=== PATIENT | female | born 1985 | race Caucasian/White ===

== ENCOUNTER → 2017-01-12 | Outpatient (CLI) | payer BC ==
[~2017-01-12] MED LIST: PRENTAB26 PO; RANI150T3 PO
[2017-01-12 13:00] LABS: BASO % 0.7 %; BASO ABS # 0.03 K/uL (0-0.2); COMPLETE YES; HEMATOCRIT 38.3 % (37-47); IG% 0.2 %; LYMPH % 20.7 %; LYMPH ABS # 0.92 K/uL (1.2-3.4); MEAN CELL VOLUME 82.2 fL (80-100); MEAN CORPUSCULAR HGB CONC 32.9 g/dl (32-36); MEAN PLATELET VOLUME 10.1 fL (7.4-10.4); MONO % 8.6 %; NEUT % 67.8 %; PLATELET COUNT 256 K/uL (130-400); RED BLOOD COUNT 4.66 M/uL (4.2-5.4); WHITE BLOOD COUNT 4.44 K/uL (4.8-10.8)
[2017-01-12 13:17] LABS: ALT/SGPT 25 U/L (12-78); AST/SGOT 15 U/L (15-37); BLOOD UREA NITROGEN 9 mg/dl (7-18); CALCIUM 8.9 mg/dl (8.5-10.1); CARBON DIOXIDE 31 mmol/L (21-32); CHLORIDE 106 mmol/L (98-107); CREATININE 0.75 mg/dl (0.60-1.20); GLUCOSE 72 mg/dl (70-99); POTASSIUM 3.6 mmol/L (3.5-5.1); SODIUM 139 mmol/L (136-145)
[2017-01-12 13:19] LABS: ALB/GLOB RATIO 1.1 (0.9-2); ALKALINE PHOSPHATASE 43 U/L (45-117)
== END | disposition home or self-care (01) ==
LOC: C.LABBC 10:10
PROVIDERS: ATTEND Internal Medicine
DX: R11.2 Nausea with vomiting, unspecified (principal); R10.33 Periumbilical pain

== ENCOUNTER → 2017-01-17 | Outpatient (CLI) | payer BC ==
--- NOTE | 2017-01-17 08:25 | DIAGNOSTIC IMAGING REPORT ---
ABDOMINAL ULTRASOUND COMPLETE HISTORY: Nausea. Vomiting. R11.2 Nausea and yolrmquuP34.33 Periumbilical abdominal pain of. COMPARISON: 03/22/2010 FINDINGS: Pancreas: Possible hypoechoic nodule in the pancreatic tail versus interposed bowel measuring 1.5 cm Liver: Small 1 cm benign hemangioma. Otherwise negative study Gallbladder: No gallbladder wall thickening. No gallstones. CBD: 3 mm Kidneys: No hydronephrosis. Spleen: Normal in size. Aorta: Normal in caliber. IVC: Patent. IMPRESSION: 1. 1.5 cm hypoechoic nodule pancreatic tail versus interposed bowel/artifact. 2. CT of the abdomen is recommended to exclude is pancreas lesion. 3. Small benign hemangioma liver 4. Otherwise negative study Electronically signed by: Jesus Alberto Thornton M.D. 01/17/2017 8:24 AM Dictated Date/Time: 01/17/2017 8:21 AM
== END | disposition home or self-care (01) ==
LOC: C.ULTRBC 07:20
PROVIDERS: ATTEND Internal Medicine
DX: R11.2 Nausea with vomiting, unspecified (principal); R10.33 Periumbilical pain

== ENCOUNTER → 2017-01-31 | Outpatient (CLI) | payer BC ==
[~2017-01-31] MED LIST changes: +OPTIRAY 320 IV PRN
--- NOTE | 2017-01-31 10:09 | DIAGNOSTIC IMAGING REPORT ---
PANCREAS (ABDOMEN) COMBO CLINICAL HISTORY: 31 years-old Female presenting with abnormal ultrasound, 1.5 cm pancreatic tail nodule. TECHNIQUE: Multidetector CT of the abdomen was performed before and after the administration of intravenous contrast. IV contrast: 94 mL of Optiray 320. A dose lowering technique was used consistent with the principles of ALARA (as low as reasonably achievable). COMPARISON: Correlation made to ultrasound from 01/17/2017. CT DOSE (mGy.cm): The estimated cumulative dose is 375.33 mGycm. FINDINGS: Film Coater topogram: Unremarkable. Lung bases: Lung bases clear. No pericardial or pleural effusion. Liver: Normal morphology. Subcentimeter flash filling hemangioma noted in the left hepatic lobe. Focal hypodensity along the fissure for the ligamentum teres likely perfusional variation. Replaced right hepatic artery arising from the superior mesenteric artery. Superior mesenteric, portal, and hepatic veins patent. Biliary: No intrahepatic or extrahepatic biliary ductal dilatation. Normal gallbladder. Pancreas: Normal. No mass lesion. Specifically, the pancreatic tail is normal. Spleen: Well-defined hypodense lesion at the medial superior spleen measuring 1.8 cm with an additional similar-appearing subcentimeter lesion more inferiorly and laterally. Possibly cysts or pseudocysts versus lymphangiomas. Adrenal glands: Normal. Kidneys and ureters: Normal. No hydronephrosis. Gastrointestinal tract: Evaluation of the bowel is limited due to lack of progression of oral contrast beyond the stomach. No bowel obstruction. Bowel grossly normal. Peritoneal cavity: No free fluid or intraperitoneal gas. Vasculature: Aorta and IVC patent and normal in caliber. Lymph nodes: No enlarged lymph nodes in the abdomen. Abdominal wall: Normal. Musculoskeletal: Normal. IMPRESSION: 1. No evidence of pancreatic tail mass. No acute intraperitoneal pathology. Electronically signed by: Jeevan Avalos M.D. 01/31/2017 10:07 AM Dictated Date/Time: 01/31/2017 10:00 AM
== END | disposition home or self-care (01) ==
LOC: C.CTS 09:33
PROVIDERS: ATTEND Internal Medicine
DX: K86.9 Disease of pancreas, unspecified (principal)

== ENCOUNTER → 2017-06-28 | Outpatient (CLI) | payer BC ==
[~2017-06-28] MED LIST changes: -OPTIRAY 320 IV PRN
== END | disposition home or self-care (01) ==
LOC: C.PAPS 15:29
PROVIDERS: ATTEND Physician Assistant
DX: Z01.419 Encounter for gynecological examination (general) (routine) without abnormal findings (principal)

== ENCOUNTER → 2017-07-31 | Outpatient (CLI) | payer OTHER ==
[2017-07-31 16:50] LABS: BASO % 0.5 %; BASO ABS # 0.03 K/uL (0-0.2); EOS % 1.8 %; EOS ABS # 0.11 K/uL (0-0.5); HEMATOCRIT 37.8 % (37-47); HEMOGLOBIN 12.6 g/dL (12.0-16.0); IG# 0.02 K/uL (0.00-0.02); LYMPH % 21.4 %; LYMPH ABS # 1.28 K/uL (1.2-3.4); MEAN CELL VOLUME 81.6 fL (80-100); MEAN CORPUSCULAR HEMOGLOBIN 27.2 pg (25-34); MEAN CORPUSCULAR HGB CONC 33.3 g/dl (32-36); MEAN PLATELET VOLUME 9.5 fL (7.4-10.4); MONO % 3.2 %; MONO ABS # 0.19 K/uL (0.11-0.59); NEUT % 72.8 %; NEUT ABS # 4.35 K/uL (1.4-6.5); PLATELET COUNT 264 K/uL (130-400); RED CELL DISTRIBUTION WIDTH CV 13.5 % (11.5-14.5); RED CELL DISTRIBUTION WIDTH SD 40.3 fL (36.4-46.3); WHITE BLOOD COUNT 5.98 K/uL (4.8-10.8)
[2017-07-31 17:10] LABS: ALBUMIN 3.5 gm/dl (3.4-5.0); ALT/SGPT 23 U/L (12-78); AST/SGOT 13 U/L (15-37); BLOOD UREA NITROGEN 12 mg/dl (7-18); CALCIUM 9.3 mg/dl (8.5-10.1); CARBON DIOXIDE 28 mmol/L (21-32); CREATININE 0.82 mg/dl (0.60-1.20); GLUCOSE 93 mg/dl (70-99); POTASSIUM 3.4 mmol/L (3.5-5.1); SODIUM 138 mmol/L (136-145)
[2017-07-31 17:13] LABS: ALKALINE PHOSPHATASE 34 U/L (45-117)
== END | disposition home or self-care (01) ==
LOC: C.LAB 16:07
PROVIDERS: ATTEND Nurse Practitioner Family
DX: K21.9 Gastro-esophageal reflux disease without esophagitis (principal); D73.9 Disease of spleen, unspecified

== ENCOUNTER → 2017-08-02 | Outpatient (CLI) | payer OTHER ==
[~2017-08-02] MED LIST changes: +OPTIRAY 320 IV PRN
--- NOTE | 2017-08-02 13:14 | DIAGNOSTIC IMAGING REPORT ---
CT OF THE ABDOMEN AND PELVIS WITH CONTRAST CLINICAL HISTORY: Splenic lesion. COMPARISON STUDY: CT of the abdomen and pelvis January 31, 2017. TECHNIQUE: Following IV administration of 93 mL of Optiray-320, axial images of the abdomen and pelvis were obtained from the lung bases to the proximal femurs. Images were reviewed in the axial, sagittal, and coronal planes. IV contrast was administered without complication. A dose lowering technique was utilized adhering to the principles of ALARA. Oral contrast was administered. CT DOSE: 254.99 mGy.cm FINDINGS: The previously described 1.8 cm cystic lesion has markedly decreased in size and may have completely resolved. However, there is a suspected residual 6 mm hypodensity. This suggests a cyst. This is benign. An 8 mm hypodense splenic lesion is unchanged. Liver morphology is normal. A 1.5 cm right hepatic lobe hemangioma is noted. These kidneys, adrenal glands and pancreas are normal. The caliber and wall thickness of small and large bowel are normal. No lymphadenopathy is present. No suspicious osseous lesions are present. There is no biliary or pancreatic ductal dilatation. The appendix is normal. IMPRESSION: 1. Marked decrease in size of the previously described 1.8 cm hypodense splenic lesion which likely reflected a cyst. This is benign. No change in an additional 8 mm hypodense splenic lesion which is benign. 2. 1.5 cm right hepatic lobe hemangioma. Electronically signed by: Daniel Pineda M.D. 08/02/2017 1:12 PM Dictated Date/Time: 08/02/2017 1:03 PM
== END | disposition home or self-care (01) ==
LOC: C.CTS 12:12
PROVIDERS: ATTEND Nurse Practitioner Family
DX: D73.9 Disease of spleen, unspecified (principal)

== ENCOUNTER → 2018-02-17 | Outpatient (CLI) | payer OTHER ==
[~2018-02-17] MED LIST changes: -OPTIRAY 320 IV PRN
[2018-02-17 15:45] LABS: BASO % 0.4 %; BASO ABS # 0.02 K/uL (0-0.2); HEMATOCRIT 40.4 % (37-47); HEMOGLOBIN 13.1 g/dL (12.0-16.0); IG# 0.01 K/uL (0.00-0.02); LYMPH % 29.6 %; MEAN CELL VOLUME 80.5 fL (80-100); MEAN CORPUSCULAR HEMOGLOBIN 26.1 pg (25-34); MEAN CORPUSCULAR HGB CONC 32.4 g/dl (32-36); MEAN PLATELET VOLUME 9.5 fL (7.4-10.4); MONO % 4.2 %; MONO ABS # 0.21 K/uL (0.11-0.59); NEUT % 63.6 %; NEUT ABS # 3.22 K/uL (1.4-6.5); PLATELET COUNT 281 K/uL (130-400); RED CELL DISTRIBUTION WIDTH CV 13.6 % (11.5-14.5); RED CELL DISTRIBUTION WIDTH SD 39.6 fL (36.4-46.3); WHITE BLOOD COUNT 5.06 K/uL (4.8-10.8)
[2018-02-17 16:22] LABS: ALBUMIN 3.7 gm/dl (3.4-5.0); ALKALINE PHOSPHATASE 53 U/L (45-117); ALT/SGPT 24 U/L (12-78); AST/SGOT 14 U/L (15-37); BLOOD UREA NITROGEN 11 mg/dl (7-18); CALCIUM 8.9 mg/dl (8.5-10.1); CARBON DIOXIDE 28 mmol/L (21-32); CREATININE 0.85 mg/dl (0.60-1.20); GLUCOSE 70 mg/dl (70-99); POTASSIUM 3.7 mmol/L (3.5-5.1); SODIUM 137 mmol/L (136-145); TOTAL PROTEIN 7.3 gm/dl (6.4-8.2)
== END | disposition home or self-care (01) ==
LOC: C.LAB 15:11
PROVIDERS: ATTEND Nurse Practitioner Family
DX: D73.9 Disease of spleen, unspecified (principal); R53.83 Other fatigue

== ENCOUNTER → 2018-02-21 | Outpatient (CLI) | payer OTHER ==
--- NOTE | 2018-02-21 08:58 | DIAGNOSTIC IMAGING REPORT ---
(SPLEEN) ABD LTD CLINICAL HISTORY: 32 years-old Female presenting with D73.9 Splenic lesion [id number]. TECHNIQUE: Real-time grayscale and limited color Doppler ultrasound imaging of the left upper quadrant of the abdomen was performed. COMPARISON: CT from 08/02/2017 FINDINGS: Spleen: Normal in echogenicity and size, measuring 8.8 cm in length. An anechoic subcentimeter lesion is noted in the spleen as seen on CT. Left kidney: Grossly no hydronephrosis. Ascites: None. Other: None. IMPRESSION: Cystic splenic lesion suspected to be a lymphangioma or other benign entity. Electronically signed by: Jeevan Avalos M.D. 02/21/2018 8:57 AM Dictated Date/Time: 02/21/2018 8:55 AM
== END | disposition home or self-care (01) ==
LOC: C.ULTR 08:15
PROVIDERS: ATTEND Nurse Practitioner Family
DX: D73.9 Disease of spleen, unspecified (principal)

== ENCOUNTER 2020-01-15 06:18 | Inpatient (IN) ==
[2020-01-15] MEDS ORDERED: OXYTOCIN 30 UNITS/500 ML BAG IV PRN ×2 (06:38→11:33)
--- NOTE | 2020-01-15 06:39 | History & Physical Report ---
Date of Service January 15, 2020 Assessment & Plan (1) Supervision of elderly multigravida, antepartum: - tracing Cat II, moderate variability and accels - pt desires epidural - anticipate (2) Encounter for screening laboratory testing for COVID-19 virus: History of Present Illness Chief Complaint: labor Primary Care Provider: Shady Sanz III, SANTO The patient is a 34-year-old 3 para 2 with an EDC of 16 January, at 39+ weeks gestational age, who presents to labor and delivery in active labor. Patient states contractions began at approximately 0400 hrs. on day of admission. She denies rupture of membranes or vaginal bleeding. The patient has had a benign course. Her blood type is O+, antibody negative, rubella immune, hepatitis B negative, she declined all genetic screening, she had a normal 1 hour Glucola x2, she had a negative third trimester beta strep culture, her COVID-19 screen is pending. Allergies Allergy/AdvReac Type Severity Reaction Status Date / Time Penicillins AdvReac Mild Rash Verified 01/15/20 06:37 Home Medications Home Medications Medication Instructions Recorded Confirmed Type prenat.vits,margarita,[id number]-[id number] 1 tab PO DAILY 06/03/19 01/15/20 History famotidine [Pepcid] 20 mg PO DAILY 01/15/20 01/15/20 History Patient History Social History marital status: marital status details: Celestino Tang (34) [phone] Current Living Situation: Family Current Living Situation Comment: Lives with and children, 1 dog current occupational status: employed current occupation: senior accountant cpa at [employer] Smoking Status: Never smoker Hx Alcohol Use: No Hx Substance Use: No Physical Exam Constitutional: WD/WN, vitals as above Respiratory: Auscultation: lungs clear to auscultation bilaterally Cardiovascular: RRR, no murmur, no edema Extremities: no calf tenderness Gastrointestinal (Abdomen): Gravid, (+) FHT's, EFW 7 lbs Genitourinary: Cervix: 5/100/0 Coding Level of Care Code None Diagnoses Supervision of elderly multigravida, antepartum O09.529 Encounter for screening laboratory testing for COVID-19 virus Z11.59
[2020-01-15] MEDS: LACTATED RINGER'S 1,000 ML IV PRN ×2 (07:12→09:06)
[2020-01-15 07:16] LABS: Hematocrit (blood only) 39.6 % (37-47); Mean Corpuscular Hemoglobin 26.5 pg (25-34); Mean Corpuscular Volume 80.8 fL (80-100); Mean Platelet Volume 10.5 fL (7.4-10.4); Platelet Count 190 K/uL (130-400); RDW Coefficient of Variation 13.6 % (11.5-14.5); RDW Standard Deviation 40.1 fL (36.4-46.3); White Blood Count 7.14 K/uL (4.8-10.8)
[2020-01-15] MEDS ORDERED: ePHEDrine sulfate 50 MG/ML AMP ONE (07:17)
[2020-01-15] MEDS ORDERED: fentaNYL citrate 100 MCG/2 ML VIAL ONE (07:17)
[2020-01-15] MEDS ORDERED: BUPIVACAINE 0.25% 30 ML VIAL ONE (07:17)
[2020-01-15] MEDS ORDERED: fentaNYL 2MCG/ML ROPIV 1.25MG/ML 100 ML BAG EPI ONE (07:18)
[2020-01-15 07:23] LABS: Mean Corpuscular Hgb Conc 32.8 g/dL (32-36)
--- NOTE | 2020-01-15 07:31 | Anesthesiology Consultation ---
Date of Service January 15, 2020 Assessment & Plan (1) Encounter for screening laboratory testing for COVID-19 virus: Chart Review Chart Review: Patient NOT seen in Pre Admission Testing and Acceptable Risk for Labor Epidural Consults Requested none ASA ASA2 Proposed Anesthesia Anesthesia Type: Labor Epidural Risk / Benefits Reviewed With: PT / POA / Parent / Guardian, Accepts Plan and Informed Consent Obtained History Height/Weight Height: 5 ft 2 in Weight: 59.874 kg Allergies Allergy/AdvReac Type Severity Reaction Status Date / Time Penicillins AdvReac Mild Rash Verified 01/15/20 06:37 Medications Home Medications Medication Instructions Recorded Confirmed Last Taken prenat.vits,margarita,rcu-[id number] 1 tab PO DAILY 06/03/19 01/15/20 01/14/20 08:00 famotidine [Pepcid] 20 mg PO DAILY 01/15/20 01/15/20 01/15/20 06:00 Active Medications Generic Name Dose Route Start Last Admin Trade Name Freq PRN Reason Stop Dose Admin Lactated Ringer's 1,000 mls @ 125 mls/hr 01/15/20 06:38 01/15/20 07:12 Lr IV 01/17/20 06:37 999 mls/hr .Q8H PRN Administration L&D Protocol Protocol NPO Date Last Intake of Fluids: 01/15/20 Time Last Intake of Fluids: 07:29 Date Last Intake of Solids: 01/15/20 Time Last Intake of Solids: 05:00 Past Medical History Medical History Advanced maternal age (AMA) in Encounter for anatomic survey Female infertility History of varicella Supervision of normal intrauterine in multigravida Exercise / Class Metabolic Activity II 4-5 Yardwork/Stairs/Walk up hill Past Family History Family History Aunt Ovarian cancer Breast cancer Grandmother (Maternal) Heart disease Fibroids Mother Hypertension Dyslipidemia Sister Alcohol abuse Anxiety Bipolar disorder Depression Drug abuse Past Surgical History Surgical History H/O oral surgery History of esophagogastroduodenoscopy Past Anesthesia History No Hx of Anesthesia Complications History of PONV History of PONV Social History Smoking Status: Never smoker Hx Alcohol Use: No Hx Substance Use: No Review of Systems Patient denies history of abnormal bleeding or bleeding disorder. Patient denies active use of anticoagulants other than low dose aspirin. Negative for chest pain or shortness of breath. Patient denies numbness, tingling or weakness in lower extremities. Patient denies active symptoms of GERD. Physical Exam Vital Signs Last Vital Signs Temp 36.9 C 01/15/20 06:39 Pulse 94 H 01/15/20 06:45 Resp 18 01/15/20 06:39 BP 119/77 01/15/20 06:45 Constitutional not obese (Gravid uterus) ENMT Mouth: no TMJ abnormality and oral opening not small Thyromental Distance: > or= 3.5 Finger Breadths Mallampati Class: II Neck normal visual inspection; neck extension not limited Respiratory normal respiratory effort Auscultation: lungs clear to auscultation bilaterally Cardiovascular Rate/Rhythm: regular rate and regular rhythm Heart Sounds: no murmur Neurologic moves all extremities Motor/Sensory: no sensory deficit Psychiatric Orientation: alert and oriented x 3 Testing Laboratory Results 01/15/20 07:02
[2020-01-15] MEDS ORDERED: ePHEDrine sulfate 50 MG/ML AMP IV PRN (08:10)
[2020-01-15] MEDS ORDERED: NALOXONE HCL 0.4 MG/1 ML VIAL/CARP IV PRN (08:10)
[2020-01-15] MEDS ORDERED: ONDANSETRON INJ 2 MG/ML 2 ML VIAL IV PRN (08:10)
[2020-01-15] MEDS ORDERED: DiphenhydrAMINE HCL 50 MG/ML VIAL IV PRN (08:10)
[2020-01-15] MEDS ORDERED: fentaNYL 2MCG/ML ROPIV 1.25MG/ML 100 ML BAG EPI PRN (08:10)
[2020-01-15] MEDS ORDERED: NALOXONE HCL 1 MG in SODIUM CHLORIDE 0.9% 1000ML 1,000 ML IV PRN (08:10)
--- NOTE | 2020-01-15 11:12 | Delivery Summary ---
Vaginal Delivery Summary Date of Service January 15, 2020 Vaginal Delivery Summary Spontaneous vaginal delivery of live female infant baby is delivered in occiput anterior position after only a few maternal pushes fluid was clear there was no nuchal cord mouth and the nurse suction with bulb baby delivered with gentle traction no excessive force this was an easy delivery live vigorous female infant cord clamped and cut cord gases obtained cord blood obtained placenta removed with gentle traction small first-degree tear repaired with 3-0 Vicryl small periclitoral tear repaired with 3-0 Vicryl estimated blood loss 250 mL
[2020-01-15] MEDS ORDERED: SUPERCREAM 0.870% 15 GM JAR EXT PRN (11:33)
[2020-01-15] MEDS ORDERED: bisacodyL 10 MG SUPP PR PRN (11:33)
[2020-01-15] MEDS ORDERED: OXYCODONE/ACETAMINOPHEN 5mg/325mg TAB PO PRN (11:33)
[2020-01-15] MEDS ORDERED: ACETAMINOPHEN 325 MG TAB PO PRN (11:33)
[2020-01-15] MEDS ORDERED: DIPHTHERIA/TETANUS/PERTUSSIS 0.5 ML SYR/VIAL IM ONE (11:33)
[2020-01-15] MEDS ORDERED: BENZOCAINE 20% AER SPR 82.5 GM CAN EXT PRN (11:33)
[2020-01-15] MEDS ORDERED: HYDROCORTISONE ACETATE 25 MG SUPP PR PRN (11:33)
[2020-01-15 11:40] LABS: Base Excess Cord Arterial Bld -0.5 mEq/L (-9-1.8); CO2 Cord Arterial Blood 61 mmHg (39.1-73.5); HCO3 Cord Arterial Blood 28 mmol/L (19.7-28.5); PO2 Cord Arterial Blood 18 mmHg (4.1-31.7); pH Cord Arterial Blood 7.28 (7.1-7.38)
[2020-01-15 11:44] LABS: Base Excess Cord Venous Blood 0.8 mEq/L (-7.7-1.9); Cord Venous Blood HCO3 26 mmol/L (18.4-26.8); Cord Venous Blood PCO2 44 mmHg (30.4-57.2); Cord Venous Blood PO2 30 mmHg (14.1-43.3); Cord Venous Blood pH 7.39 (7.20-7.44); Oxygen Sat Cord Arterial Blood < 60.0 % (<60)
--- NOTE | 2020-01-15 13:07 | Anesthesia Procedure Note ---
Date of Service January 15, 2020 Anesthesia Post Epidural Note Vital Signs Vital Signs: Temp Pulse Resp BP Pulse Ox 36.9 C 69 18 106/68 98 01/15/20 06:39 01/15/20 13:03 01/15/20 12:18 01/15/20 13:03 01/15/20 11:21 Pain Intensity Lower Abdomen: Pain Intensity: 0 Notes Mental Status: alert / awake / arousable and participated in evaluation Nausea / Vomiting: adequately controlled Pain: adequately controlled Airway Patency, RR, SpO2: stable & adequate BP & HR: stable & adequate Hydration State: stable & adequate Neuraxial Anesthesia: was administered and sensory block is resolving Anesthetic Complications: no major complications apparent and Pt Satisfied with anesthetic care Epidural: Removed without complications and With tip intact Notes: Epidural site clean, dry and intact. No signs of edema, erythema or bruising at insertion site. Pt instructed to request anesthesia if she has residual lower extremity numbness or if she develops lower extremity pain or weakness, back pain or headache.
[2020-01-15] MEDS: IBUPROFEN 600 MG TAB PO PRN ×2 (15:44→19:13)
[2020-01-15] MEDS: DOCUSATE SODIUM 100 MG CAP PO SCH (19:13)
[2020-01-16 05:41] LABS: Hematocrit (blood only) 35.6 % (37-47); Hemoglobin 11.5 g/dL (12.0-16.0); Mean Corpuscular Hemoglobin 26.9 pg (25-34); Mean Corpuscular Hgb Conc 32.3 g/dL (32-36); Mean Corpuscular Volume 83.2 fL (80-100); Mean Platelet Volume 10.4 fL (7.4-10.4); Platelet Count 169 K/uL (130-400); RDW Coefficient of Variation 13.8 % (11.5-14.5); RDW Standard Deviation 41.8 fL (36.4-46.3); Red Blood Count 4.28 M/uL (4.2-5.4); White Blood Count 7.73 K/uL (4.8-10.8)
[2020-01-16] MEDS: IBUPROFEN 600 MG TAB PO PRN ×2 (06:14→14:13)
--- NOTE | 2020-01-16 07:44 | Obstetrical Progress Note ---
Date of Service January 16, 2020 Assessment & Plan (1) state: home Subjective Ambulation: ambulating normally Voiding: no incontinence Passing Gas:: Yes Diet Tolerance:: regular diet Lochia:: Small Feeding Type:: breast feeding Current Pain Level(1-10): 1 Physical Exam Gastrointestinal (Abdomen) normal bowel sounds, soft, nontender, no hepatosplenomegaly (Ext neg) Results & Data ([facility]) Vital Signs (Past 12 Hours) Vital Signs Temp Pulse Resp BP Pulse Ox 01/16/20 00:00 98.1 F 68 18 118/77 01/15/20 20:00 98.1 F 79 16 108/73 96
[2020-01-16] MEDS ORDERED: PRENATAL VITAMIN 1 TAB PO SCH (08:00)
[2020-01-16] MEDS ORDERED: FAMOTIDINE 20 MG TAB PO SCH (09:00)
[2020-01-16] MEDS ORDERED: NON-FORMULARY MEDICATION (Prenat.Vits,Cal,Min-Iron-Folic 1 TAB) PO SCH (09:00)
[2020-01-16] MEDS: DOCUSATE SODIUM 100 MG CAP PO SCH (09:17)
[2020-01-16] MEDS ORDERED: OXYTOCIN 30 UNITS/500 ML BAG IV PRN (18:59)
[2020-01-16] MEDS ORDERED: bisacodyL 5 MG TABEC PO SCH (20:00)
== END 2020-01-16 19:05 | disposition home or self-care (01) | DRG 807 ==
LOC: OPB 06:18 → 4S1 06:19 → 4S2 14:48